=== PATIENT | female | born 1985 | race Caucasian/White ===

== ENCOUNTER 2018-10-05 07:39 | Observation (INO) | payer BC ==
[2018-10-04 08:56] LABS: BASOPHILS % 0.7 % (0.0-1.0); EOSINOPHILS # (AUTO) 0.1 (0.0-0.4); EOSINOPHILS % 2.5 % (0.0-6.0); HEMATOCRIT 35.5 % (34.2-44.1); HEMOGLOBIN 11.7 g/dL (12.0-16.0); LYMPHOCYTES # (AUTO) 1.9 (1.0-3.2); LYMPHOCYTES % 33.7 % (18.0-39.1); MEAN CORPUSCULAR VOLUME 94.2 fL (81-99); MONOCYTES # (AUTO) 0.4 (0.2-0.8); MONOCYTES % 7.3 % (4.4-11.3); NEUTROPHILS # (AUTO) 3.1 (2.1-6.9); NEUTROPHILS % 55.6 % (38.7-80.0); PLATELET COUNT 231 x10e3/uL (140-360); RED BLOOD COUNT 3.77 x10e6/uL (3.6-5.1); RED CELL DISTRIBUTION WIDTH 12.2 % (11.7-14.4)
[2018-10-04 09:35] LABS: ALANINE AMINOTRANSFERASE 6 IU/L (0-55); ALBUMIN 3.7 g/dL (3.5-5.0); ALBUMIN/GLOBULIN RATIO 1.1 (0.8-2.0); ALKALINE PHOSPHATASE 58 IU/L (40-150); ANION GAP 10.9 mmol/L (8-16); BLOOD UREA NITROGEN 13 mg/dL (7-26); BUN/CREATININE RATIO 18 (6-25); CALCIUM 9.6 mg/dL (8.4-10.2); CARBON DIOXIDE 25 mmol/L (22-29); CHLORIDE 106 mmol/L (98-107); CREATININE, SERUM 0.74 mg/dL (0.57-1.11); EST GLOMERULAR FILTRATION RATE > 60 ML/MIN (60-); GLUCOSE 97 mg/dL (74-118); POTASSIUM 3.9 mmol/L (3.5-5.1); SODIUM 138 mmol/L (136-145)
[~2018-10-05] VITALS: Ht 165.1 cm; Wt 65.5 kg
[~2018-10-05 07:39] MED LIST: MULTI-VITAMIN1 EACH; NEXIUM2.5 MG; ZYRTEC10 M3
[2018-10-05] MEDS ORDERED: NORCO 7.5-3251 EACH PO (08:24)
[2018-10-05] MEDS ORDERED: BUPIVACAINE 0.25%/EPI 30ML SDV INJ ONE (14:13)
[2018-10-05] MEDS ORDERED: CLINDAMYCIN PHOS 900MG/ 50ML 50 ML IV ONE (14:23)
[2018-10-05 16:00] VITALS: BP 129/59
[2018-10-05] MEDS ORDERED: MUPIROCIN 2% OINT 22 GM TUBE ONE (16:10)
[2018-10-05] MEDS: SODIUM CHLORIDE 0.45% 1,000 ML IV SCH (16:29)
[2018-10-05] MEDS ORDERED: ACETAMINOPHEN 325 MG TAB PO PRN (16:30)
[2018-10-05] MEDS ORDERED: PROMETHAZINE HCL (IM) 25 MG/ML VIAL IV PRN (16:30)
[2018-10-05] MEDS ORDERED: DIPHENHYDRAMINE HCL 25 MG CAP PO PRN (16:30)
[2018-10-05] MEDS ORDERED: HYDROCODONE/APAP 5MG-325MG TAB PO PRN (16:30)
[2018-10-05] MEDS ORDERED: SIMETHICONE 80 MG CHEW PO PRN (16:30)
[2018-10-05] MEDS ORDERED: HYDROMORPHONE 1MG/1ML INJ IV PRN (16:30)
[2018-10-05] MEDS ORDERED: FENTANYL CITRATE/PF 100MCG/2 ML INJ ONE ×3 (16:51→19:55)
[2018-10-05] MEDS ORDERED: OMEPRAZOLE 20 MG CAP PO SCH (17:00)
--- NOTE | 2018-10-05 17:15 | Operative Report ---
DATE OF PROCEDURE: October 05, 2018 RESIDENTIAL CONCIERGE: ENEDELIA Ford. PREOPERATIVE DIAGNOSIS: Endometriosis. POSTOPERATIVE DIAGNOSIS: Endometriosis. OPERATION PERFORMED: Total laparoscopic hysterectomy with bilateral salpingectomy. ANESTHESIA: General. ESTIMATED BLOOD LOSS: 20 mL. COMPLICATIONS: None. FINDINGS: Small anteverted uterus noted on bimanual exam. Laparoscopically, findings included approximately 20 to 30 mL of bright red blood within the abdomen within the cul-de-sac. Areas of endometriosis and scarring noted. Also noted was a distended gallbladder. Otherwise apparently normal anatomy. SPECIMENS: Uterus with attached cervix and fallopian tubes and ovaries bilaterally. INDICATIONS: The patient is a 33-year-old 0 with a long-standing history of endometriosis, endometriomas, and chronic pelvic pain which was refractory to all medical management. Desiring definitive surgical management. Also, the patient has a strong family history of ovarian cancer and desired complete hysterectomy with bilateral salpingo-oophorectomy. Prior to the operation, the risks, benefits and alternatives were discussed with the patient and the consent was reconciled. DETAILS OF PROCEDURE: The patient was brought to the operating room and was properly identified. She was placed in the modified dorsal lithotomy position in adjustable Matty stirrups and prepped and draped in the typical sterile fashion. A time-out was then performed. A weighted speculum was placed in the vagina with visualization of the cervix, which was then grasped along the anterior lip with a single-tooth tenaculum. This facilitated placement of a VCare uterine manipulator followed by removal of the single-tooth and speculum. Attention was then turned to the laparoscopic portion of the procedure. The infraumbilical skin was infiltrated with 0.5% Marcaine with epinephrine and incised using a scalpel to create a 5-mm incision. A 5-mm trocar was placed under direct visualization. The abdomen was then insufflated with CO2 gas to a maximal pressure of 15 mmHg. The abdomen and pelvis were inspected with the above-noted findings. Secondary trocars were then placed in the left and right lower quadrants. After a thorough inspection of the pelvis, both ureters were visualized and peristalsis was noted. Their course was well away from the planned procedure. A LigaSure was introduced and used to coagulate and divide the patient's left infundibulopelvic ligament. This incision was carried along the mesosalpinx to the broad ligament. The LigaSure was then used to coagulate and divide the left round ligament, and this incision was continued along the anterior leaf of the broad ligament, undermining and dividing the vesicouterine peritoneal reflection laterally to medially to the right of the midline. The posterior leaf of the broad ligament was also coagulated and divided to the level of the utero-ovarian ligament. Attention was then turned to the right infundibulopelvic ligament which was likewise coagulated and divided with the LigaSure with continuation of this incision along the mesosalpinx down to the broad ligament. The right round ligament was then coagulated and divided and incision continued along the anterior leaf of the broad ligament undermining and dividing the vesicouterine peritoneal reflection laterally to medially to unite with the prior incision. The posterior leaf of the broad ligament was then coagulated and divided to the level of the utero-ovarian ligament. Both sharp and blunt dissection were then used to mobilize the bladder off of the lower uterine segment, cervix and upper vagina. Both uterine vessels were skeletonized, coagulated and divided with the LigaSure down to the level of the internal cervical os. All pedicles were inspected and found to be hemostatic. The monopolar end of the LigaSure was used to create the colpotomy incision against the VCare cup. The uterus was attached. Adnexa were then delivered through the vagina without difficulty. The abdomen and pelvis copiously irrigated with normal saline, and all pedicles were inspected and found to be hemostatic. The infraumbilical trocar was then removed and the incision widened and a 10-mm trocar placed at the site. An Endo Stitch with 0 V-Loc suture was placed through this 10-mm trocar and the vaginal cuff was closed in a running fashion. The cuff was then inspected and found to be hemostatic. A sheet of Surgicel was placed over the vaginal cuff. The 10-mm port site was removed under direct visualization and a Hardeep-Emory device used to place two sutures of 0 Vicryl suture in order to close the fascia at this level. The remaining port sites were then removed under direct visualization and the abdomen desufflated. All incisions were closed with 4-0 Monocryl and covered with Dermabond. The patient was awakened from the anesthesia and extubated in the OR. She was authorized to be taken to the PACU in good condition. Job#: [id number] TA
[2018-10-05] MEDS ORDERED: PROMETHAZINE 12.5MG/ NACL 0.9% 50 ML IV PRN (17:30)
[2018-10-05 17:35] VITALS: BP 129/59
[2018-10-05] MEDS ORDERED: ROCURONIUM BROMIDE 10 MG/ML 5ML VIAL ONE (17:48)
[2018-10-05] MEDS ORDERED: PROPOFOL IV EMULSION 10 MG/ML 20 ML VIAL ONE (17:48)
[2018-10-05] MEDS ORDERED: KETOROLAC TROMETHAMINE 30 MG/ML VIAL ONE (17:48)
[2018-10-05] MEDS ORDERED: EPHEDRINE SULFATE INJ 50 MG/10 ML SYR ONE (17:48)
[2018-10-05] MEDS ORDERED: ONDANSETRON HCL INJ 2 MG/ML VIAL ONE (17:48)
[2018-10-05] MEDS ORDERED: SEVOFLURANE INHAL SOLN 250 ML PEN BTL ONE (17:48)
[2018-10-05] MEDS ORDERED: LIDOCAINE HCL 2% LOCAL INJ 5 ML SDV VIAL INJ ONE (17:48)
[2018-10-05] MEDS ORDERED: DEXAMETHASONE SOD PHOS INJ 4 MG/ML VIAL ONE (17:48)
[2018-10-05] MEDS: DOCUSATE SODIUM 100 MG CAP PO SCH (17:56)
[2018-10-05] MEDS: PANTOPRAZOLE SOD 40 MG TABEC PO SCH (17:57)
[2018-10-05] MEDS: KETOROLAC TROMETHAMINE 30 MG/ML VIAL IV SCH (17:57)
[2018-10-05] MEDS ORDERED: GENTAMICIN 80MG/NS 100 ML 100 ML IV ONE (18:00)
[2018-10-05] MEDS ORDERED: ESTRADIOL 0.1MG PATCH (ONCE WEEKLY) TOP SCH (18:30)
[2018-10-05 18:45] VITALS: BP 129/59
[2018-10-05] MEDS ORDERED: MIDAZOLAM HCL 2 MG/2 ML VIAL ONE (19:55)
[2018-10-05 20:00] VITALS: BP 121/58
[2018-10-05] MEDS: HYDROMORPHONE 2MG/ML 2 MG/ML ML IV PRN (20:00)
[2018-10-05] MEDS: ONDANSETRON HCL INJ 2 MG/ML VIAL IV PRN (20:00)
[2018-10-05] MEDS ORDERED: ZOLPIDEM TARTRATE 5 MG TAB PO PRN (21:00)
[2018-10-05 21:45] VITALS: BP 111/59
[2018-10-05] MEDS: CLINDAMYCIN PHOS 900MG/ 50ML 50 ML IV SCH (21:45)
[2018-10-05] MEDS: HYDROCODONE/APAP 10MG-325MG TAB PO PRN (21:45)
[2018-10-06] VITALS: BP 111/59
[2018-10-06] MEDS: SODIUM CHLORIDE 0.45% 1,000 ML IV SCH ×2 (00:18→07:45)
[2018-10-06] MEDS: KETOROLAC TROMETHAMINE 30 MG/ML VIAL IV SCH ×2 (00:20→06:15)
[2018-10-06 04:00] VITALS: BP 99/56
[2018-10-06 05:28] LABS: BASOPHILS % 0.1 % (0.0-1.0); EOSINOPHILS % 0.2 % (0.0-6.0); HEMATOCRIT 32.7 % (34.2-44.1); HEMOGLOBIN 11.1 g/dL (12.0-16.0); LYMPHOCYTES # (AUTO) 2.1 (1.0-3.2); LYMPHOCYTES % 18.3 % (18.0-39.1); MEAN CORPUSCULAR HEMOGLOBIN 30.9 pg (28-32); MEAN CORPUSCULAR HGB CONC 33.9 g/dL (31-35); MEAN CORPUSCULAR VOLUME 91.1 fL (81-99); MONOCYTES # (AUTO) 0.8 (0.2-0.8); MONOCYTES % 7.2 % (4.4-11.3); NEUTROPHILS # (AUTO) 8.6 (2.1-6.9); NEUTROPHILS % 73.9 % (38.7-80.0); PLATELET COUNT 233 x10e3/uL (140-360); RED BLOOD COUNT 3.59 x10e6/uL (3.6-5.1); RED CELL DISTRIBUTION WIDTH 11.9 % (11.7-14.4)
[2018-10-06 06:03] LABS: ANION GAP 13.7 mmol/L (8-16); BLOOD UREA NITROGEN 13 mg/dL (7-26); BUN/CREATININE RATIO 19 (6-25); CALCIUM 8.6 mg/dL (8.4-10.2); CARBON DIOXIDE 22 mmol/L (22-29); CHLORIDE 106 mmol/L (98-107); CREATININE, SERUM 0.68 mg/dL (0.57-1.11); EST GLOMERULAR FILTRATION RATE > 60 ML/MIN (60-); GLUCOSE 89 mg/dL (74-118); POTASSIUM 3.7 mmol/L (3.5-5.1); SODIUM 138 mmol/L (136-145)
[2018-10-06] MEDS: CLINDAMYCIN PHOS 900MG/ 50ML 50 ML IV SCH (06:15)
[2018-10-06] MEDS: PANTOPRAZOLE SOD 40 MG TABEC PO SCH (06:30)
[2018-10-06] MEDS: ONDANSETRON HCL INJ 2 MG/ML VIAL IV PRN (06:33)
[2018-10-06] MEDS: HYDROMORPHONE 2MG/ML 2 MG/ML ML IV PRN (06:33)
[2018-10-06] MEDS: DOCUSATE SODIUM 100 MG CAP PO SCH (08:10)
[2018-10-06] MEDS: HYDROCODONE/APAP 10MG-325MG TAB PO PRN (08:10)
[2018-10-06 08:24] VITALS: BP 99/50
[2018-10-06 09:00] VITALS: BP 99/50
[2018-10-06] MEDS ORDERED: IBUPROFEN600 MG PO (09:22)
[2018-10-06] MEDS ORDERED: ESTRADIOL1 EACH TOP (09:22)
[2018-10-06] MEDS ORDERED: SIMETHICONE80 MG PO (09:22)
[2018-10-06] MEDS ORDERED: KRISTALOSE20 GM PO (09:25)
[2018-10-06] MEDS ORDERED: GABAPENTIN300 MG PO (09:25)
[2018-10-06] MEDS ORDERED: GABAPENTIN 300 MG CAP PO SCH (15:00)
== END 2018-10-06 10:55 | disposition home or self-care (01) ==
LOC: OR 07:39 → PACU V 16:36 → IMCU 17:25
PROVIDERS: ADMIT Obstetrics & Gynecology Obstetrics; ATTEND Obstetrics & Gynecology Obstetrics
DX: N80.9 Endometriosis, unspecified (principal); Z01.812 Encounter for preprocedural laboratory examination; Z80.41 Family history of malignant neoplasm of ovary; R10.2 Pelvic and perineal pain; Z88.0 Allergy status to penicillin; K21.9 Gastro-esophageal reflux disease without esophagitis
CPT/HCPCS: 36415 ×2; 58571; 80048; 80053; 84702; 85025 ×2; 86850; 86900; 88307; G0378 ×2; J1100; J1170 ×2; J1580; J1885 ×2; J2001; J2250; J2405 ×2; J2704; S0164 ×2